=== PATIENT | male | born 1975 | race Caucasian/White ===

== ENCOUNTER 2017-01-04 11:57 | Outpatient (CLI) | payer MEDICARE, MEDICAID ==
[2017-01-04 13:28] LABS: ALT (SGPT) 60 U/L (0-55); AST (SGOT) 32 U/L (5-34); Alkaline Phosphatase 119 U/L (40-150); Anion Gap 18 mmol/L (10-20); BUN (Urea Nitrogen) 25 mg/dL (8.9-20.6); Bilirubin, Total 0.5 mg/dL (0.2-1.2); Calc. Creatinine Clearance 0 mL/min (70-130); Calcium 9.1 mg/dL (7.8-10.44); Carbon Dioxide 24 mmol/L (22-29); Chloride 100 mmol/L (98-107); Estimated GFR-MDRD 38; Globulin 2.6 g/dL (2.4-3.5); LDL Cholesterol, Calculated 93 mg/dL; Protein, Total 6.7 g/dL (6.0-8.3)
[2017-01-04 13:29] LABS: #Basophils 0.1 thou/uL (0.0-0.2); #Eosinphils 0.1 thou/uL (0.0-0.7); #Lymphocytes 1.7 thou/uL (1.20-3.40); #Monocytes 0.7 thou/uL (0.11-0.59); #Neutrophils 6.1 thou/uL (1.40-6.50); %Basophils 0.8 % (0.0-1.0); %Eosinophils 1.6 % (0.0-10.0); %Monocytes 7.5 % (0.0-10.0); Hematocrit 42.5 % (42.0-52.0); Mean Platelet Volume 6.2 fL (7.4-10.4); Red Blood Cell (RBC) Count 4.19 mill/uL (4.70-6.10); White Blood Cell (WBC) Count 8.7 thou/uL (4.8-10.8)
[2017-01-04 17:03] LABS: Hemoglobin A1c 7.6 % (4.0-6.0)
== END 2017-01-04 11:58 ==
LOC: HPCALD 11:57
PROVIDERS: ATTEND Family Medicine
DX: E11.9 Type 2 diabetes mellitus without complications (principal); I10 Essential (primary) hypertension; E78.5 Hyperlipidemia, unspecified
CPT/HCPCS: 80053; 80061; 83036; 84443; 85025

== ENCOUNTER 2017-04-09 14:50 | Outpatient (CLI) | payer MEDICARE, MEDICAID ==
--- NOTE | 2017-04-09 21:39 | RAD ---
RIGHT FOOT THREE VIEWS 04/09/17 Three views show no fracture or area of bony destruction. There were no plain film findings of osteo myelitis. All bony structures appear normal at this time. IMPRESSION: No acute finding. POS: HOME
== END 2017-04-09 14:51 | disposition home or self-care (01) ==
LOC: BURRAD 14:50
PROVIDERS: ATTEND Family Medicine
DX: E11.621 Type 2 diabetes mellitus with foot ulcer (principal)

== ENCOUNTER 2017-04-11 08:20 | Outpatient (CLI) | payer MEDICARE, MEDICAID ==
[2017-04-11 10:05] LABS: #Basophils 0.1 thou/uL (0.0-0.2); #Eosinphils 0.2 thou/uL (0.0-0.7); #Lymphocytes 1.8 thou/uL (1.20-3.40); #Neutrophils 6.7 thou/uL (1.40-6.50); %Basophils 0.8 % (0.0-1.0); %Eosinophils 1.7 % (0.0-10.0); %Lymphocytes 18.2 % (21.0-51.0); %Monocytes 10.1 % (0.0-10.0); %Neutrophils 69.2 % (42.0-75.0); Hemoglobin 13.3 g/dL (14.0-18.0); Mean Corpuscular HGB CONC 33.9 g/dL (32.0-36.0); Mean Corpuscular Hemoglobin 31.8 pg (27.0-31.0); Mean Corpuscular Volume 93.6 fl (80.0-94.0); Mean Platelet Volume 5.9 fL (7.4-10.4); Platelet Count 329 thou/uL (130-400); RBC Distribution Width 11.2 % (11.5-14.5); Red Blood Cell (RBC) Count 4.19 mill/uL (4.70-6.10); White Blood Cell (WBC) Count 9.7 thou/uL (4.8-10.8)
[2017-04-11 10:26] LABS: ALT (SGPT) 56 U/L (8-55); AST (SGOT) 34 U/L (5-34); Albumin 4.1 g/dL (3.5-5.0); Alkaline Phosphatase 190 U/L (40-150); Anion Gap 19 mmol/L (10-20); BUN (Urea Nitrogen) 27 mg/dL (8.9-20.6); Bilirubin, Total 0.4 mg/dL (0.2-1.2); Calc. Creatinine Clearance 0 mL/min (70-130); Calcium 9.7 mg/dL (7.8-10.44); Carbon Dioxide 19 mmol/L (22-29); Cardiac Risk 4.6 (Less than 4.5); Chloride 104 mmol/L (98-107); Cholesterol 190 mg/dl (< 200 Desired); Estimated GFR-MDRD 39; Glucose 86 mg/dL (70-105); HDL Cholesterol 41 mg/dL (>60 Neg Risk); LDL Cholesterol, Calculated 110 mg/dL; Potassium 4.6 mmol/L (3.5-5.1); Protein, Total 7.1 g/dL (6.0-8.3); Sodium 137 mmol/L (136-145); Triglycerides 194 mg/dL (Less than 150)
[2017-04-11 10:27] LABS: Free T4 (Free Thyroxine) 0.98 ng/dL (0.70-1.48); Thyroid Stimulating Hormone 4.002 uIU/mL (0.35-4.94)
[2017-04-11 10:34] LABS: Hemoglobin A1c 8.2 % (4.0-6.0)
== END 2017-04-11 08:21 ==
LOC: HPCALD 08:20
PROVIDERS: ATTEND Family Medicine
DX: E78.5 Hyperlipidemia, unspecified (principal); E03.9 Hypothyroidism, unspecified; E11.9 Type 2 diabetes mellitus without complications; I10 Essential (primary) hypertension
CPT/HCPCS: 36415; 80053; 80061; 83036; 84439; 84443; 85025

== ENCOUNTER 2019-04-08 20:07 | Emergency (ER) | payer MEDICARE, MEDICAID ==
[2019-04-08 20:45] LABS: #Eosinphils 0.1 thou/uL (0.0-0.7); #Lymphocytes 1.3 thou/uL (1.20-3.40); #Monocytes 0.7 thou/uL (0.11-0.59); #Neutrophils 6.2 thou/uL (1.40-6.50); %Basophils 0.5 % (0.0-1.0); %Eosinophils 0.6 % (0.0-10.0); %Monocytes 8.8 % (0.0-10.0); Hemoglobin 11.1 g/dL (14.0-18.0); Mean Corpuscular HGB CONC 32.3 g/dL (32.0-36.0); Mean Corpuscular Hemoglobin 29.4 pg (27.0-31.0); Mean Corpuscular Volume 90.9 fL (78.0-98.0); Mean Platelet Volume 5.8 fL (7.4-10.4); Platelet Count 216 thou/uL (130-400); Red Blood Cell (RBC) Count 3.79 mill/uL (4.70-6.10); White Blood Cell (WBC) Count 8.3 thou/uL (4.8-10.8)
[2019-04-08 20:57] LABS: ALT (SGPT) 204 U/L (8-55); AST (SGOT) 32 U/L (5-34); Albumin 3.8 g/dL (3.5-5.0); Alkaline Phosphatase 152 U/L (40-150); Anion Gap 17 mmol/L (10-20); BUN (Urea Nitrogen) 34 mg/dL (8.9-20.6); Bilirubin, Total 0.3 mg/dL (0.2-1.2); Calc. Creatinine Clearance 0 mL/min (70-130); Calcium 9.4 mg/dL (7.8-10.44); Carbon Dioxide 22 mmol/L (22-29); Chloride 103 mmol/L (98-107); Estimated GFR-MDRD 35; Globulin 3.7 g/dL (2.4-3.5); Glucose 60 mg/dL (70-105); Potassium 3.8 mmol/L (3.5-5.1); Protein, Total 7.5 g/dL (6.0-8.3); Sodium 138 mmol/L (136-145)
[2019-04-08] MEDS ORDERED: Sulfameth/Trimethoprim DS 800-160mg TAB ONE (21:09)
[2019-04-08] MEDS ORDERED: Acetaminophen 500 MG TAB ONE (21:09)
== END 2019-04-08 21:20 | disposition home or self-care (01) ==
LOC: BURERS 20:07
DX: L03.115 Cellulitis of right lower limb (principal); E78.5 Hyperlipidemia, unspecified; I10 Essential (primary) hypertension; E11.9 Type 2 diabetes mellitus without complications
CPT/HCPCS: 80053; 85025; 87070; 87205; 99283

== ENCOUNTER 2019-08-21 15:46 | Emergency (ER) | payer MEDICARE, MEDICAID ==
[2019-08-21 16:37] LABS: Base Excess-Venous -4.5 mmol/L (-2.0 to 3.0); Bicarbonate (HCO3v) 17.6 mmol/L (22.0-28.0); CO2 Tension (PvCO2) 25.4 mmHg (40.0-50.0); Calcium, Ionized 1.04 mmol/L (See Comments:); Chloride 97 mmol/L (98-107); Hemoglobin - Calc 15.5 g/dL (14.0-18.0); Potassium 3.3 mmol/L (3.5-5.1); Sodium 131 mmol/L (138-145); T. Carbon Dioxide 18.3 mmol/L (22.0-28.0)
[2019-08-21 16:40] LABS: ALT (SGPT) 57 U/L (8-55); AST (SGOT) 90 U/L (5-34); Albumin 3.9 g/dL (3.5-5.0); Alkaline Phosphatase 119 U/L (40-150); Anion Gap 18 mmol/L (10-20); BUN (Urea Nitrogen) 33 mg/dL (8.9-20.6); Bilirubin, Total 0.7 mg/dL (0.2-1.2); Calc. Creatinine Clearance 0 mL/min (70-130); Calcium 9.4 mg/dL (7.8-10.44); Carbon Dioxide 19 mmol/L (22-29); Chloride 97 mmol/L (98-107); Estimated GFR-MDRD 32; Globulin 3.7 g/dL (2.4-3.5); Glucose 317 mg/dL (70-105); Potassium 3.4 mmol/L (3.5-5.1); Protein, Total 7.6 g/dL (6.0-8.3); Sodium 131 mmol/L (136-145)
[2019-08-21 16:45] LABS: Band 18 % (5-11); Hemoglobin 14.5 g/dL (14.0-18.0); Lymphocytes 3 % (21-51); MDiff Complete? YES; Mean Corpuscular HGB CONC 33.7 g/dL (32.0-36.0); Mean Corpuscular Hemoglobin 30.6 pg (27.0-31.0); Mean Corpuscular Volume 90.8 fL (78.0-98.0); Monocytes 2 % (0-10); Neutrophil 77 % (42-75); Platelet Count 203 thou/uL (130-400); RBC Distribution Width 11.6 % (11.5-14.5); Red Blood Cell (RBC) Count 4.74 mill/uL (4.70-6.10); White Blood Cell (WBC) Count 20.1 thou/uL (4.8-10.8)
[2019-08-21 17:23] LABS: Acetaminophen Less than 6.0 mcg/mL (10.0-30.0); Alcohol Less than 10 mg/dL (Less than 10); Salicylate Less than 8.0 mg/dL (15.0-30.0)
--- NOTE | 2019-08-21 17:41 | RAD ---
CHEST TWO VIEWS: 08/21/19 Comparison is made with the 05/04/13 T-spine film series. The heart is normal in size. There is no vascular congestion, edema, or pleural effusion. While there is no lobar consolidation, some of the lung markings in the lower lobes are mildly promin ent, perhaps a little more so on the right than the left. The findings are nonspecific and could be t he patient's norm. They also could signify bronchitis or minimal infection. The exam was otherwise un remarkable. IMPRESSION: Slight accentuation of basilar lung markings. See comments above. POS: HOME
--- NOTE | 2019-08-21 17:43 | CT ---
CT OF THE BRAIN WITHOUT CONTRAST: 08/21/[address] was performed for evaluation of headache. The ventricles are normal in size with no shift. No intracranial bleeding, mass or sign of stroke was found. There is no signs of edema or othe r acute parenchymal change. The paranasal sinuses are clear. The calvarium appears normal. IMPRESSION: No significant findings. POS: HOME
[2019-08-21 18:09] LABS: Bilirubin Small (Negative); Blood, Urine Large (Negative); Clarity Cloudy (Clear); Glucose, Urine (Dipstick) Negative (Negative); Leukocyte Negative (Negative); Nitrite Negative (Negative); Protein, Urine (Dipstick) > or equal to 300 mg/dL (Neg-Trace); Urobilinogen 0.2 mg/dL (Less than 2)
[2019-08-21 18:16] LABS: RBC/HPF 0-3 HPF (0-3)
[2019-08-21 18:17] LABS: Bacteria/HPF None Seen HPF (None Seen); Broad Cast None Seen LPF (None Seen); Cellular Cast None Seen LPF (None Seen); Epithelial Cast None Seen LPF (None Seen); Fatty Cast None Seen LPF (None Seen); Mucous/LPF None Seen LPF (<2+); Other Casts None Seen LPF (None Seen); Oval Fat Bodies/HPF None Seen HPF (None Seen); Red Blood Cell Cast None Seen LPF (None Seen); Renal Epithelial None Seen HPF (None Seen); Sperm/HPF None Seen HPF (None Seen); Squamous Epithelial 0-3 HPF (0-3); Transitional Epithelial None Seen HPF (None Seen); Trichomonas/HPF None Seen HPF (None Seen); WBC/HPF None Seen HPF (0-3); Waxy Cast None Seen LPF (None Seen); White Blood Cell Cast None Seen LPF (None Seen); Yeast-Budding None Seen HPF (None Seen); Yeast-Hyphae None Seen HPF (None Seen)
[2019-08-21 18:18] LABS: Calcium Oxalate Crystals None Seen HPF (None Seen); Triple Phosphate Crystal None Seen HPF (None Seen); Unclassified Crystals None Seen HPF (None Seen)
[2019-08-21] MEDS ORDERED: Cephalexin 500 MG CAP ONE (18:23)
[2019-08-21] MEDS ORDERED: Azithromycin 250 MG TAB ONE (18:23)
== END 2019-08-21 18:32 | disposition home or self-care (01) ==
LOC: BURERS 15:46
DX: L03.115 Cellulitis of right lower limb (principal); E11.9 Type 2 diabetes mellitus without complications; E78.5 Hyperlipidemia, unspecified; I10 Essential (primary) hypertension; F31.9 Bipolar disorder, unspecified; Z79.899 Other long term (current) drug therapy; Z79.82 Long term (current) use of aspirin; Z79.4 Long term (current) use of insulin
CPT/HCPCS: 36416; 70450; 71046; 80053; 80307; 81003; 81015; 82330; 82435; 82803; 83605; 84132; 84295; 84443; 84484; 85014; 85025; 87040; 87086

== ENCOUNTER → 2019-11-29 | Emergency (ER) | payer MEDICARE, MEDICAID | LOC: BURERS 13:55 | DX: L03.116 Cellulitis of left lower limb (principal); E11.9 Type 2 diabetes mellitus without complications; E78.5 Hyperlipidemia, unspecified; I10 Essential (primary) hypertension; F31.9 Bipolar disorder, unspecified | CPT/HCPCS: 99283 ==

== ENCOUNTER 2020-03-11 14:32 | Emergency (ER) | payer MEDICARE, MEDICAID ==
[2020-03-11] MEDS ORDERED: Sulfameth/Trimethoprim DS 800-160mg TAB ONE (15:18)
[2020-03-11] MEDS ORDERED: Cephalexin 250 MG CAP ONE (15:18)
== END 2020-03-11 15:20 | disposition home or self-care (01) ==
LOC: BURERS 14:32
DX: L03.116 Cellulitis of left lower limb (principal); E11.9 Type 2 diabetes mellitus without complications; E78.5 Hyperlipidemia, unspecified; I10 Essential (primary) hypertension; F31.9 Bipolar disorder, unspecified
CPT/HCPCS: 99283

== ENCOUNTER 2021-01-24 14:20 | Emergency (ER) | payer MEDICARE, MEDICAID ==
--- NOTE | 2021-01-24 20:05 | RAD ---
RIGHT FOOT THREE VIEWS: 01/24/21 Comparison is made with the 04/09/17 study. No fracture or bony destructive lesion was seen. There may be a little bit of soft tissue swelling ar ound the first MTP joint and the fifth MTP joint, but no erosions were seen. No fractures were presen t. There is a linear opaque foreign body overlying the proximal phalanx of the great toe. this was not p resent on a 04/09/17 study. It appears to be on the planar aspect of the toe and has the appearance of the end of a needle or pin. IMPRESSION: 1. Linear foreign body overlying the proximal phalanx of the great toe. See above. Was not prese nt in 2017. 2. Mild swelling seen around the first and fifth toes proximally. Code T POS: HOME
--- NOTE | 2021-01-24 20:13 | RAD ---
LEFT FOOT THREE VIEWS: 01/24/21 No fracture or area of bony destruction was seen. The bones and joints were unremarkable. Similar to the right foot, a linear opaque foreign body such as a small piece of wire or end of a pin is seen embedded in the soft tissues of the fourth toe proximally. It is located on the plantar aspe ct of the toe. IMPRESSION: 1. No acute bony findings. 2. Opaque foreign body related to the fourth toe. Code T POS: HOME
== END 2021-01-24 15:30 | disposition home or self-care (01) ==
LOC: BURERS 14:20
DX: E11.621 Type 2 diabetes mellitus with foot ulcer (principal); L97.529 Non-pressure chronic ulcer of other part of left foot with unspecified severity; L97.519 Non-pressure chronic ulcer of other part of right foot with unspecified severity; L03.116 Cellulitis of left lower limb; L03.115 Cellulitis of right lower limb; E78.5 Hyperlipidemia, unspecified; I10 Essential (primary) hypertension
CPT/HCPCS: 87070; 87205

== ENCOUNTER 2021-05-07 13:20 | Emergency (ER) | payer MEDICARE, MEDICAID ==
[2021-05-07] MEDS ORDERED: Sulfameth/Trimethoprim DS 800-160mg TAB ONE (13:40)
== END 2021-05-07 13:44 | disposition home or self-care (01) ==
LOC: BURERS 13:20
DX: L03.116 Cellulitis of left lower limb (principal); E11.9 Type 2 diabetes mellitus without complications; E78.5 Hyperlipidemia, unspecified; I10 Essential (primary) hypertension
CPT/HCPCS: 99283

== ENCOUNTER 2021-08-12 21:23 | Emergency (ER) | payer MEDICARE, MEDICAID ==
[2021-08-12] MEDS ORDERED: Cephalexin 250 MG CAP ONE (23:17)
[2021-08-12] MEDS ORDERED: Sulfameth/Trimethoprim DS 800-160mg TAB ONE (23:18)
== END 2021-08-12 23:20 | disposition home or self-care (01) ==
LOC: BURERS 21:23
DX: L03.115 Cellulitis of right lower limb (principal); E11.9 Type 2 diabetes mellitus without complications; E78.5 Hyperlipidemia, unspecified; I10 Essential (primary) hypertension
CPT/HCPCS: 99283

== ENCOUNTER 2021-09-08 15:24 | Emergency (ER) | payer MEDICARE, MEDICAID | END 2021-09-08 15:51 | disposition home or self-care (01) | LOC: BURERS 15:24 | DX: L03.115 Cellulitis of right lower limb (principal); E11.9 Type 2 diabetes mellitus without complications; E78.5 Hyperlipidemia, unspecified; I10 Essential (primary) hypertension | CPT/HCPCS: 99283 ==

== ENCOUNTER 2021-11-13 20:00 | Emergency (ER) | payer MEDICARE, MEDICAID ==
[2021-11-13] MEDS ORDERED: Cephalexin 250 MG CAP ONE (21:01)
[2021-11-13] MEDS ORDERED: Indomethacin 25 mg Capsule PO SCH (21:15)
== END 2021-11-13 21:20 | disposition home or self-care (01) ==
LOC: BURERS 20:00
DX: M10.9 Gout, unspecified (principal); L03.115 Cellulitis of right lower limb; I10 Essential (primary) hypertension; E11.9 Type 2 diabetes mellitus without complications; E78.5 Hyperlipidemia, unspecified; Z79.82 Long term (current) use of aspirin; Z79.899 Other long term (current) drug therapy
CPT/HCPCS: 99283

== ENCOUNTER 2022-11-27 17:52 | Emergency (ER) | payer OTHER, MEDICAID ==
[2022-11-27] MEDS ORDERED: predniSONE 20 MG TAB ONE ×2 (18:58→18:59)
== END 2022-11-27 19:09 | disposition home or self-care (01) ==
LOC: BURERS 17:52
DX: J06.9 Acute upper respiratory infection, unspecified (principal); B34.9 Viral infection, unspecified; E11.9 Type 2 diabetes mellitus without complications; I10 Essential (primary) hypertension; E78.5 Hyperlipidemia, unspecified; Z20.822 Contact with and (suspected) exposure to COVID-19
CPT/HCPCS: 87804; 99283; J7512; U0003; U0005

== ENCOUNTER 2023-01-24 12:07 | Emergency (ER) | payer OTHER, MEDICAID ==
[2023-01-24] MEDS ORDERED: Azithromycin 250 MG TAB ONE (13:34)
== END 2023-01-24 13:36 | disposition home or self-care (01) ==
LOC: BURERS 12:07
DX: J15.7 Pneumonia due to Mycoplasma pneumoniae (principal)
CPT/HCPCS: 71045; 87804

== ENCOUNTER 2023-01-29 17:53 | Emergency (ER) | payer OTHER, MEDICAID | END 2023-01-29 18:39 | disposition home or self-care (01) | LOC: BURERS 17:53 | DX: J18.9 Pneumonia, unspecified organism (principal); Z79.899 Other long term (current) drug therapy | CPT/HCPCS: 99283 ==

== ENCOUNTER 2023-03-27 20:02 | Emergency (ER) | payer OTHER, MEDICAID ==
[2023-03-27] MEDS ORDERED: predniSONE 20 MG TAB ONE (20:55)
[2023-03-27] MEDS ORDERED: levETIRAcetam 250 MG TAB ONE (20:55)
== END 2023-03-27 21:01 | disposition home or self-care (01) ==
LOC: BURERS 20:02
DX: J18.9 Pneumonia, unspecified organism (principal); R07.81 Pleurodynia; E11.9 Type 2 diabetes mellitus without complications; E78.5 Hyperlipidemia, unspecified; I10 Essential (primary) hypertension; Z79.899 Other long term (current) drug therapy
CPT/HCPCS: 71045; 93005; J7512

== ENCOUNTER 2023-09-13 21:41 | Emergency (ER) | payer OTHER, MEDICAID ==
[2023-09-13] MEDS ORDERED: Morphine 4 MG/ML VIAL ONE (22:01)
[2023-09-13] MEDS ORDERED: Ondansetron ODT 4 MG TAB ONE (22:01)
== END 2023-09-13 22:42 | disposition home or self-care (01) ==
LOC: BURERS 21:41
DX: S20.211A Contusion of right front wall of thorax, initial encounter (principal); E11.9 Type 2 diabetes mellitus without complications; I10 Essential (primary) hypertension; W19.XXXA Unspecified fall, initial encounter
CPT/HCPCS: 96372; J2270; Q0162